=== PATIENT | male | born 1940 | race Two or more races ===

== ENCOUNTER 2019-06-05 09:21 | Outpatient (CLI) | payer OTHER | END 2019-06-05 09:30 | disposition home or self-care (01) | LOC: RAD 09:21 | DX: S16.1XXD Strain of muscle, fascia and tendon at neck level, subsequent encounter (principal); M54.5 Low back pain; R10.2 Pelvic and perineal pain ==

== ENCOUNTER 2020-05-18 07:17 | Outpatient (CLI) | payer OTHER | END 2020-05-18 07:19 | disposition home or self-care (01) | LOC: SONOGRAMA 07:17 → MAMO-SONO 07:45 | DX: R10.84 Generalized abdominal pain (principal); Q44.6 Cystic disease of liver ==

== ENCOUNTER 2020-10-27 12:49 | Outpatient (CLI) | payer OTHER | END 2020-10-27 12:57 | disposition home or self-care (01) | LOC: SONOGRAMA 12:49 → MAMO-SONO 13:15 | PROVIDERS: ATTEND Family Medicine | DX: I82.612 Acute embolism and thrombosis of superficial veins of left upper extremity (principal) ==

== ENCOUNTER 2023-02-16 06:58 | Emergency (ER) | payer OTHER ==
[~2023-02-16] VITALS: Ht 172.7 cm; Wt 74.4 kg
[2023-02-16] MEDS ORDERED: ATENOLOL50 MG (07:30)
[2023-02-16] MEDS ORDERED: LOSARTAN POTASS50 MG (07:30)
[2023-02-16] MEDS ORDERED: ZOLOFT50 MG (07:31)
== END 2023-02-16 10:55 | disposition home or self-care (01) ==
LOC: ER 06:58
DX: I10 Essential (primary) hypertension (principal); F41.9 Anxiety disorder, unspecified

== ENCOUNTER → 2024-07-19 | Emergency (ER) | payer OTHER ==
[~2024-07-19] VITALS: Ht 172.7 cm; Wt 74.4 kg
[~2024-07-19] MED LIST: ATENOLOL50 MG; CEFAZOLIN SODIUM 1,000 MG VIAL IM ONE; LOSARTAN POTASS50 MG; TAMS0.4C; ZOLOFT50 MG
== END | disposition home or self-care (01) ==
LOC: ER 12:11
DX: S09.8XXA Other specified injuries of head, initial encounter (principal); W19.XXXA Unspecified fall, initial encounter; Y93.89 Activity, other specified; Y92.098 Other place in other non-institutional residence as the place of occurrence of the external cause; Y99.8 Other external cause status; I10 Essential (primary) hypertension
CPT/HCPCS: 70450; 72125; 96372; 99284; J0690

== ENCOUNTER 2025-02-25 07:42 | Outpatient (CLI) | payer OTHER ==
[~2025-02-25 07:42] MED LIST changes: -CEFAZOLIN SODIUM 1,000 MG VIAL IM ONE
== END 2025-02-25 07:46 | disposition home or self-care (01) ==
LOC: RAD 07:42
PROVIDERS: ATTEND Family Medicine
DX: M54.2 Cervicalgia (principal)

== ENCOUNTER 2025-04-04 09:49 | Outpatient (CLI) | payer OTHER | END 2025-04-04 09:57 | disposition home or self-care (01) | LOC: TOM 09:49 | PROVIDERS: ATTEND Family Medicine | DX: M54.2 Cervicalgia (principal) ==

== ENCOUNTER → 2025-04-09 08:29 | Outpatient (CLI) | payer OTHER ==
[2025-04-09 09:24] LABS: CREATININE SERUM 1.04 mg/dL (0.70-1.30)
== END | disposition home or self-care (01) ==
LOC: LAB 08:29
PROVIDERS: ATTEND Radiology Diagnostic Radiology
DX: R06.02 Shortness of breath (principal)

== ENCOUNTER 2025-04-10 07:58 | Outpatient (CLI) | payer OTHER | END 2025-04-10 08:07 | disposition home or self-care (01) | LOC: TOM 07:58 | PROVIDERS: ATTEND Family Medicine | DX: R06.02 Shortness of breath (principal) ==

== ENCOUNTER 2025-04-23 11:18 | Outpatient (CLI) | payer OTHER | END 2025-04-23 11:22 | disposition home or self-care (01) | LOC: SONOGRAMA 11:18 | PROVIDERS: ATTEND Internal Medicine Pulmonary Disease | DX: J98.6 Disorders of diaphragm (principal); R06.02 Shortness of breath ==

== ENCOUNTER 2025-06-03 07:13 | Outpatient (CLI) | payer OTHER | END 2025-06-03 07:16 | disposition home or self-care (01) | LOC: SONOGRAMA 07:13 | PROVIDERS: ATTEND Family Medicine | DX: M79.652 Pain in left thigh (principal) ==